=== PATIENT | female | born 1990 | race African-American/Black ===

== ENCOUNTER 2018-01-24 19:05 | Emergency (ER) | payer SELFPAY ==
[~2018-01-24] VITALS: Ht 182.9 cm; Wt 100.0 kg
[2018-01-24 19:07] VITALS: BP 122/72
== END 2018-01-24 21:10 | disposition left against medical advice (07) ==
LOC: ER 21:07
DX: Z53.21 Procedure and treatment not carried out due to patient leaving prior to being seen by health care provider (principal)

== ENCOUNTER 2019-03-13 08:23 | Emergency (ER) | payer OTHER, MEDICAID ==
[~2019-03-13] VITALS: Ht 182.9 cm; Wt 105.0 kg
[2019-03-13] MEDS ORDERED: SODIUM CHLORIDE 0.9% 1,000 ML IV ONE (09:01)
[2019-03-13] MEDS ORDERED: LEVETIRACETAM 1000MG/100ML 100 ML IV ONE (09:15)
[2019-03-13] MEDS ORDERED: LORAZEPAM 2MG/ML CPJ IV ONE (09:15)
[2019-03-13 09:18] LABS: BASOPHILS % 0.9 % (0.0-2.0); EOSINOPHILS % 3.5 % (0.0-5.0); HEMATOCRIT. 38.2 % (36.0-48.0); HEMOGLOBIN. 12.3 g/dL (12.0-16.0); LYMPHOCYTES % 22.2 % (20.0-50.0); MONOCYTES % 5.6 % (2.0-8.0); NEUTROPHILS % 67.8 % (40.0-76.0); PLATELET 299 x1000/uL (130-400); RED BLOOD CELL COUNT 4.39 mill/uL (4.2-5.4)
[2019-03-13 09:20] LABS: CHLORIDE 110 mEq/L (98-107)
[2019-03-13 09:24] LABS: ETHANOL BLOOD < 10 mg/dL
[2019-03-13 09:29] LABS: CREATINE KINASE 588 IU/L (26-192)
[2019-03-13 10:33] VITALS: BP 111/64
[2019-03-13 11:16] LABS: CLARITY URINE CLEAR (CLEAR); COLOR URINE YELLOW (YELLOW); KETONES URINE NEGATIVE (NEGATIVE); LEUKOCYTE ESTERASE URINE NEGATIVE (NEGATIVE); NITRITE URINE NEGATIVE (NEGATIVE); OCCULT BLOOD URINE NEGATIVE (NEGATIVE); PH URINE 5.5 (4.5-8.0); PROTEIN URINE NEGATIVE (NEGATIVE); SPECIFIC GRAVITY URINE 1.006 (1.005-1.030); UROBILINOGEN URINE 0.2 E.U./dL (0.2-1.0)
[2019-03-13 11:58] LABS: *AMPHETAMINES SCREEN URINE NEGATIVE (NEGATIVE); *BARBITURATES SCREEN URINE NEGATIVE (NEGATIVE); *COCAINE SCREEN URINE NEGATIVE (NEGATIVE); METHADONE URINE SCREEN NEGATIVE (NEGATIVE)
[2019-03-13 11:59] LABS: OPIATES URINE SCREEN NEGATIVE (NEGATIVE); PHENCYCLIDINE URINE SCREEN NEGATIVE (NEGATIVE)
[2019-03-13 12:10] LABS: *BENZODIAZEPINES SCREEN URINE NEGATIVE (NEGATIVE)
[2019-03-13 12:14] LABS: CANNABINOID URINE SCREEN PRESUMTIVE POSITIVE (NEGATIVE)
== END 2019-03-13 10:36 | disposition short-term general hospital (02) ==
LOC: ER 08:23 → EDBEDREQ 09:08 → ER 10:36 → CANBEDREQ 10:39
DX: G40.909 Epilepsy, unspecified, not intractable, without status epilepticus (principal); F19.230 Other psychoactive substance dependence with withdrawal, uncomplicated; E87.2 Acidosis; E87.8 Other disorders of electrolyte and fluid balance, not elsewhere classified; Y92.89 Other specified places as the place of occurrence of the external cause
CPT/HCPCS: 36415; 71045; 80053; 80305; 80320; 81003; 81025; 82550; 82962; 83735; 85025; 93005; 96365; 96375; 99291; J1953; J2060; J7030; Z7610; G0480

== ENCOUNTER 2019-04-16 09:06 | Emergency (ER) | payer OTHER, MEDICAID ==
[~2019-04-16] VITALS: Ht 182.9 cm; Wt 90.0 kg
[2019-04-16 09:12] VITALS: BP 132/74
== END 2019-04-16 09:33 | disposition left against medical advice (07) ==
LOC: ER 09:06
DX: R56.9 Unspecified convulsions (principal); Z53.21 Procedure and treatment not carried out due to patient leaving prior to being seen by health care provider

== ENCOUNTER 2024-10-25 11:59 | Emergency (ER) | payer MEDICAID, OTHER ==
[~2024-10-25] VITALS: Ht 175.3 cm; Wt 68.0 kg
[2024-10-25 12:00] VITALS: TEMP 36.7; O2SAT 97
[2024-10-25 12:10] VITALS: BP 125/85; PULSE 88; RESP 16; O2SAT 99
== END 2024-10-25 12:15 | disposition left against medical advice (07) ==
LOC: ER 11:59
DX: R56.9 Unspecified convulsions (principal)
CPT/HCPCS: 99283